=== PATIENT | male | born 1960 | race Caucasian/White ===

== ENCOUNTER 2024-01-25 21:40 | Inpatient (IN) | payer BC, SELFPAY ==
--- NOTE | 2024-01-25 22:11 | RAD REPORT ---
EXAM DESCRIPTION: CT - Ct Stroke Brain Wo Cont - 01/25/2024 9:58 pm CLINICAL HISTORY: STROKE ALERT COMPARISON: No comparisons TECHNIQUE: All CT scans are performed using dose optimization technique as appropriate and may inclu de automated exposure control or mA/KV adjustment according to patient size. FINDINGS: No intracranial hemorrhage, hydrocephalus or extra-axial fluid collection.No areas of brai n edema or evidence of midline shift. The paranasal sinuses and mastoids are clear. The calvarium is intact. IMPRESSION: No acute intracranial abnormality. Called to Dr. Ji by Dr. Head at [id number] on 01/25/24.
[2024-01-25 22:22] LABS: Absolute Basophils 0.1 K/uL (0-0.5); Absolute Eosinophils 0.1 K/uL (0-0.5); Absolute Monocytes 0.8 K/uL (0.1-1.3); Basophils % 0.8 % (0-1.3); MCH 28.8 pg (27.0-35.0)
[2024-01-25 22:25] LABS: Absolute Lymphocytes (CBC) 1.3 K/uL (0.7-4.9); Absolute Neutrophil 10.9 K/uL (1.8-8.0); Hematocrit 46.2 % (39.6-49.0); Hemoglobin 15.2 g/dL (13.6-17.9); MCV 87.2 fL (80-100); MPV 8.4 fL (7.6-11.3); Neutrophils % 82.2 % (41.7-73.7); Platelets 326 thou/uL (152-406); RBC Red Blood Cell Count 5.29 M/uL (4.33-5.43)
[2024-01-25 22:32] LABS: PT Prothrombin Time 13.1 SECONDS (9.4-12.5); PTT, Activated Partial Thromb 32.7 SECONDS (24.3-36.9); Protime INR 1.18
[2024-01-25] MEDS ORDERED: TENECTEPLASE 50 MG/10 ML VIAL IV ONE (22:33)
--- NOTE | 2024-01-25 22:33 | RAD REPORT ---
EXAM DESCRIPTION: CT - Neck Angio - 01/25/2024 10:25 pm CLINICAL HISTORY: cva COMPARISON: <Comparisons> TECHNIQUE: CT angiography of the neck vessels was performed with maximum intensity reformatted image s. CAROTID STENOSIS REFERENCE USING NASCET CRITERIA: Mild - <50% stenosis. Moderate - 50-69% stenosis. Severe - 70-94% stenosis. Near occlusion - 95-99% stenosis. Occluded - 100% stenosis. All CT scans are performed using dose optimization technique as appropriate and may include automated exposure control or mA/KV adjustment according to patient size. FINDINGS: A left aortic arch is identified with normal three vessel configuration of the great vesse ls. No significant flow abnormality is seen of the common carotid bilaterally. No significant stenosis is identified involving the cervical segments of both internal carotid arteri es. Normal flow is seen within both vertebral arteries. Left dominant vertebral artery . IMPRESSION: No significant flow abnormality of the neck vessels is identified.
[2024-01-25 22:38] LABS: Albumin 3.6 g/dL (3.4-5.0); Albumin/Globulin Ratio 0.7 (1.1-1.8); Anion Gap 12.5 mEq/L (5.0-15.0); Bilirubin Direct 0.2 mg/dL (0-0.2); Bilirubin Indirect, Calculated 0.2 mg/dL (0.2-0.8); Bilirubin Total 0.4 mg/dL (0.2-1.0); Globulin 5.5 g/dL (2.3-3.5); Magnesium 2.3 mg/dL (1.6-2.4); Potassium 4.5 mEq/L (3.5-5.1); Protein, Total 9.1 g/dL (6.4-8.2)
--- NOTE | 2024-01-25 22:38 | RAD REPORT ---
EXAM DESCRIPTION: CT - Head angio - 01/25/2024 10:25 pm CLINICAL HISTORY: STROKE COMPARISON: Ct Stroke Brain Wo Cont dated 01/25/2024 TECHNIQUE: CT angiography of the head was performed with maximum intensity reformatted images. 3D ma ximum intensity pixel (MIP) reconstructions were created All CT scans are performed using dose optimization technique as appropriate and may include automated exposure control or mA/KV adjustment according to patient size. FINDINGS: Anterior circulation: No aneurysm or large vessel occlusion. No hemodynamically significant stenosis. No arteriovenous malf ormation identified. Posterior circulation: No aneurysm or large vessel occlusion. No hemodynamically significant stenosis. No arteriovenous malf ormation identified. Left dominant vertebral artery. IMPRESSION: No significant flow abnormality is detected.
[2024-01-25 22:41] LABS: Troponin High Sensitivity 68.3 pg/mL (<58.9)
[2024-01-25] MEDS ORDERED: LABETALOL HCL 100 MG/20 ML ONE (22:48)
--- NOTE | 2024-01-25 23:04 | ER ---
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 Coronavirus screen: At this time, the client does not indicate any symptoms associated with coronavirus-19. Ebola Screen: No symptoms or risks identified at this time. An acute neurological deficit is present. The charge nurse has been notified. The patient has been moved to a treatment area. Initial Sepsis Screen: Does the patient meet any 2 criteria? No. Patient's initial sepsis screen is negative. Does the patient have a suspected source of infection? No. Patient's initial sepsis screen is negative. Risk Assessment: Do you want to hurt yourself or someone else? Patient reports no desire to harm self or others. Onset of symptoms was January 25, 2024 at 19:30. 22:11 Method Of Arrival: EMS: [facility] 12 22:11 Acuity: DYLON 1 jm12 Triage Assessment: 21:48 General: Appears uncomfortable, Behavior is cooperative. Pain: Denies pain. EENT: No ha1 deficits noted. Neuro: Level of Consciousness is awake, Oriented to person. Neuro: Weakness in right hand(s) leg(s) Gait is unsteady, Speech with expressive aphasia noted, Facial droop on right, Pupils are PERRLA, Numbness in right arm Reports blurred vision difficulty swallowing since 1930 weakness in right side of body FAMILY MEMBER AND NEIGHBOR REPORTS LAST TIME SEEM NORMAL WAS AT 1930. Cardiovascular: Reports shortness of breath, Heart tones S1 S2 present Capillary refill < 3 seconds Patient's skin is warm and dry. Rhythm is sinus tachycardia. Respiratory: Airway is patent Respiratory effort is with retractions, Respiratory pattern is tachypnea. GI: No signs and/or symptoms were reported involving the gastrointestinal system. Abdomen is round obese. : No signs and/or symptoms were reported regarding the genitourinary system. Derm: Skin is healthy with good turgor, Skin is diaphoretic, Skin is normal. Musculoskeletal: Range of motion: limited in right arm. Stroke Activation: Physician: ED Attending; Name: Garrison; Notified At: 21:50; Arrived At: Physician: Mid-Level Provider; Name: ; Notified At: 21:50; Arrived At: Physician: [not used]; Name: ; Notified At: ; Arrived At: Physician: [not used]; Name: ; Notified At: ; Arrived At: Physician: [not used]; Name: ; Notified At: ; Arrived At: Historical: - Allergies: 22:13 No Known Allergies; [facility] - Home Meds: 22:13 None [Active]; [facility] - PMHx: 22:13 Unable to Obtain; [facility] - Immunization history:: Adult Immunizations unknown. - Infectious Disease History:: Denies. - Social history:: Smoking status: unknown Patient/guardian denies using. Screenin:13 [facility] ED Fall Risk Assessment (Adult) History of falling in the last 3 months, [facility] including since admission No falls in past 3 months (0 pts) Confusion or Disorientation No (0 pts) Intoxicated or Sedated No (0 pts) Impaired Gait Yes (1 pt) Mobility Assist Device Used No (0 pt) Altered Elimination No (0 pt) Score/Fall Risk Level 3 or more points = High Risk Oriented to surroundings, Maintained a safe environment, Educated pt \\T\\ family on fall prevention, incl call for assistance when getting out of bed, Assessed \\T\\ reinforced patient's understanding of fall precautions. 23:00 Abuse screen: Denies threats or abuse. Denies injuries from another. Nutritional ha1 screening: No deficits noted. Tuberculosis screening: No symptoms or risk factors identified. Assessment: 21:48 Reassessment: going to CT. ha1 21:48 Reassessment: SEE TRIAGE ASSESSMENT. ha1 22:00 Reassessment: back from CT. ha1 22:10 Reassessment: going back to CT. ha1 22:15 Neuro: Level of Consciousness is awake, alert, obeys commands, see stroke scale. 12 22:28 Reassessment: back from CT. ha1 22:30 Reassessment: elevated BP. Notified Dr. Ji. Dr. Ji states "hold TNK until getting ha1 a BP under 160". 22:30 VAN Scoring: Arm Drift: Severe drift Visual Disturbance: Patient reports double vision. ha1 Provider notified of +VAN scoring. Aphasia: Receptive aphasia noted. Provider notified of +VAN scoring. [place] Swallow Protocol Exclusion Criteria:. 22:30 Reassessment: Patient and/or family updated on plan of care and expected duration. Pain ha1 level reassessed. 22:45 Reassessment: SEE PAPER CHARTING FOR MORE VITAL SIGNS. ha1 23:00 [place] Swallow Protocol Brief Cognitive Screen What is your name? Abnormal Where are you ha1 right now? Normal, What year is it? Abnormal Oral Mechanism Examination Facial Symmetry: Abnormal Motion: Abnormal 3 oz Water Swallow Challenge: Pt able to drink all water without stopping, coughing, choking or throat clearing: No Result: FAIL MD Notified: Robbin Ji MD. 23:30 Reassessment: Patient and/or family updated on plan of care and expected duration. Pain ha1 level reassessed. 23:30 Respiratory: Airway is patent Respiratory effort is even, Respiratory pattern is ha1 tachypnea Breath sounds with wheezes bilaterally. 23:50 Reassessment: report given to CASI Zheng. ha1 01/25 00:40 Reassessment: Patient and/or family updated on plan of care and expected duration. Pain ha1 level reassessed. Patient states feeling better. Patient states symptoms have improved. Pain: Denies pain. Neuro: Level of Consciousness is awake, alert, obeys commands, Oriented to person, place, situation, Moves all extremities. Speech with expressive aphasia noted, Facial droop on right. Cardiovascular: Capillary refill < 3 seconds Patient's skin is warm and dry. Respiratory: Airway is patent Respiratory effort is even, Respiratory pattern is tachypnea. Vital Signs: 01/24 22:35 BP 176 / 110; Pulse 122; Resp 24 S; Temp 98.2(T); Pulse Ox 95% on 4 lpm NC; ha1 22:44 Weight 95.25 kg; Height 6 ft. 1 in. ; ha1 22:45 BP 142 / 92; Pulse 96; Resp 23 S; Pulse Ox 94% on 4 lpm NC; ha1 23:45 BP 152 / 95; Pulse 103; Resp 17; Pulse Ox 94% on 4 lpm NC; ha1 22:44 Body Mass Index 27.71 (95.25 kg, 185.42 cm) ha1 NIH Stroke Scale Scores: 22:13 NIHSS Score: 19 jm12 ED Course: 21:47 Patient arrived in ED. jj6 21:48 Patient has correct armband on for positive identification. Placed in gown. Bed in low ha1 position. Call light in reach. Side rails up X2. Adult w/ patient. 21:48 Arm band placed on right wrist. ha1 21:49 Robbin Ji MD is Attending Physician. sp3 22:00 CT Stroke Brain w/o Contrast In Process Unspecified. EDMS 22:05 Inserted saline lock: 20 gauge in left antecubital area, using aseptic technique. Blood ha1 collected. Flushed with 10 mL NS. 22:13 Triage completed. jm12 22:27 CT Neck Angio In Process Unspecified. EDMS 22:27 Head angio In Process Unspecified. EDMS 22:30 Provided Education on: TNK administration and side effects . ha1 22:35 Stroke CXR 1 View In Process Unspecified. EDMS 23:02 Vicente Goff MD is Hospitalizing Provider. sp3 23:14 Aurea Santiago, CASI is Primary Nurse. ha1 08/07 00:40 Patient admitted, IV remains in place. ha1 00:40 No provider procedures requiring assistance completed. ha1 Administered Medications: 08 22:40 Drug: Labetalol IV 10 mg IV at calculated rate once Route: IV; Rate: calculated rate; ha1 Site: left antecubital; 23:00 Follow up: Response: No adverse reaction; Blood pressure is lowered ha1 22:45 Drug: TNK FOR STROKE - Tenecteplase IV (Administer 10 ml NS flush BEFORE and vc1 AFTER tenecteplase) 0.25 mg/kg IV at per protocol once; MAX DOSE 25 mg, IVP over 5 seconds {Co-Signature: kb3 (Margarette Simeon RN).} Route: IV; Rate: per protocol; Site: left antecubital; 23:30 Not Given (unable to swallow ): [id number] mg PO once ha1 Medication: 23:47 VIS not applicable for this client. ha1 Point of Care Testing: Blood Glucose: 22:08 Blood Glucose: 196 mg/dL; ha1 Ranges: Outcome: 23:03 Decision to Hospitalize by Provider. sp3 01/25 00:40 Admitted to ICU accompanied by nurse, accompanied by tech, via stretcher, room 7, on ha1 monitor, with chart, Report called to CASI Zheng 00:40 Condition: stable ha1 00:40 Instructed on the need for admit, Demonstrated understanding of instructions, 00:41 Patient left the ED. ha1 NIH Stroke Scale - NIH Stroke Score Date: 01/25/2024 Time: 22:13 Total Score = 19 10. Dysarthria (speech clarity - read or repeat words) - 2(Severe) 11. Extinction and Inattention (visual/tactile/auditory/spatial/personal) - 2(Profound) 1a. Level of Consciousness (LOC) - 0(Alert) 1b. Level of Consciousness (LOC) (Month \\T\\ Age) - 0(Both) 1c. LOC Commands (Open \\T\\ Closes Eyes/Meat Counter Clerk) - 0(Both) 2. Best Gaze (Lateral Gaze Paresis) - 0(Normal) 3. Visual Field Loss - 0(No visual loss) 4. Facial Palsy - 2(Partial paralysis) 5a. Left Arm: Motor (10-second hold) - 0(No drift) 5b. Right Arm: Motor (10-second hold) - 4(No movement) 6a. Left Leg: Motor (5-second hold - always test supine) - 0(No drift) 6b. Right Leg: Motor (5-second hold - always test supine) - 4(No movement) 7. Limb Ataxia (finger/nose \\T\\ heel/borrego - test with eyes open) - 0(Absent) 8. Sensory Loss (pinprick arms/legs/face) - 2(Severe to total loss) 9. Best Language: Aphasia (description/naming/reading) - 3(Mute, global aphasia) Initials: jm12 Signatures: Dispatcher [employer] EDMS Robbin Ji MD MD sp3 Sharri Hussein6 Ellie Messina RN RN 1 Aurea Santiago, RN RN ha1 Kathy Cifuentes RN RN jm12 Margarette Simeon RN kb3 Corrections: (The following items were deleted from the chart) 01/24 23:22 23:20 TNK FOR STROKE - Tenecteplase IV (Administer 10 ml NS flush BEFORE ha1 and AFTER tenecteplase) 27.215 mg IV at per protocol in left antecubital ha1 23:31 22:44 108.86 kg; Height 6 ft. 1 in.; BMI: 31.6; jm12 ha1
--- NOTE | 2024-01-25 23:04 | EDPHYS ---
Physician Documentation [facility] Name: John Escudero Age: 63 yrs Sex: Male : 1960 Arrival Date: 01/25/2024 Time: 21:40 Bed 7 Private MD: ED Physician Robbin Ji HPI: 01/24 22:47 This 63 yrs old Male presents to ER via EMS with complaints of S/S of Possible Stroke. sp3 22:47 63-year-old male with no known past medical history presents via EMS which was sp3 activated by his father for 2-hour history of right-sided weakness, inability to speak and slow ground-level fall without loss of consciousness. Patient is on no medications and has had no recent surgeries as reported by EMS. Sister has arrived approximately 45 minutes into the patient's visit and states he has had no prior stroke or stroke symptoms, chest pain, other medical prodrome, fever or any other symptoms. She does endorse that he has had a cough for which she has been taking OTC meds. Patient is able to answer yes and no questions however due to his presentation and inability to speak, history, physical and ROS are limited.. Historical: - Allergies: 22:13 No Known Allergies; jm12 - Home Meds: 22:13 None [Active]; jm12 - PMHx: 22:13 Unable to Obtain; jm12 - Immunization history:: Adult Immunizations unknown. - Infectious Disease History:: Denies. - Social history:: Smoking status: unknown Patient/guardian denies using. ROS: 22:49 Unable to obtain ROS due to altered mental status, sp3 Exam: 22:49 Radiologist reports: Negative for bleed sp3 22:49 Neuro: No signs of trauma, no bleeding. Neurological exam demonstrates lower facial droop on the right side. 1/5 motor strength on right upper extremity and right lower extremity. Patient is aphasic but can shake head yes and no. When asked if he knows what he wants to say but he cannot say that he does acknowledge. Limited NIH stroke scale due to these circumstances. I estimate a stroke scale to be anywhere from 12-14., 22:49 Unable to obtain exam due to altered mental status, Vital Signs: 22:35 BP 176 / 110; Pulse 122; Resp 24 S; Temp 98.2(T); Pulse Ox 95% on 4 lpm NC; ha1 22:44 Weight 95.25 kg; Height 6 ft. 1 in. ; ha1 22:45 BP 142 / 92; Pulse 96; Resp 23 S; Pulse Ox 94% on 4 lpm NC; ha1 23:45 BP 152 / 95; Pulse 103; Resp 17; Pulse Ox 94% on 4 lpm NC; ha1 22:44 Body Mass Index 27.71 (95.25 kg, 185.42 cm) ha1 NIH Stroke Scale Scores: 22:13 NIHSS Score: 19 jm12 MDM: 21:49 Patient medically screened. sp3 22:51 TNKase (Tenecteplase) Screening: Indications:. ED course: Given stroke scale negative sp3 CT, tenecteplase is indicated. I have gone through the contraindication list with patient with limited yes and no ability to answer as well as sister who acted as patient's surrogate to the extent that she could. Patient denies any recent surgery, prior intracranial or intraspinal surgery, prior CVA, prior aneurysm, active bleeding, or any other contraindications. I have gone through benefits and risks and both patient and sister agreed to proceeding with tenecteplase. Infusion will be started and patient will be admitted to the ICU. I discussed the entire case with Dr. Clark prior to the infusion who agrees with the plan given the information documented above.. 23:00 Data reviewed: vital signs, nurses notes, lab test result(s), EKG, radiologic studies. sp3 ED course: EKG demonstrates normal sinus rhythm at 97 bpm with normal intervals with QTc 474, normal axis, normal QRS, nonspecific diffuse ST's ST changes without evidence of acute ischemia.. 23:09 ED course: Tenecteplase being infused. We will reevaluate over time. Mild delay in sp3 between CT head and angiograms due to IV difficulty. IV ultimately obtained with ultrasound assistance.. 01/24 21:53 Order name: Basic Metabolic Panel sp3 01/24 21:53 Order name: CBC with Diff; Complete Time: 23:00 sp3 01/24 21:53 Order name: Hepatic Function sp3 01/24 21:53 Order name: High Sensitivity Troponin sp3 01/24 21:53 Order name: Magnesium sp3 01/24 21:53 Order name: Protime (+inr); Complete Time: 23:00 sp3 08/ 21:53 Order name: Ptt, Activated; Complete Time: 23:00 sp3 01/24 21:53 Order name: UDS sp3 01/24 22:07 Order name: Glucose, Ancillary Testing; Complete Time: 23:00 EDMS 08/ 23:16 Order name: Urinalysis w/ reflexes EDMS / 23:16 Order name: CBC with Automated Diff EDMS 01/24 23:16 Order name: CBC with Automated Diff EDMS 01/24 23:16 Order name: Comprehensive Metabolic Panel EDMS 01/24 23:16 Order name: Comprehensive Metabolic Panel EDMS 01/24 23:16 Order name: Lipid Profile EDMS 01/24 23:16 Order name: Lipid Profile EDMS 01/24 23:21 Order name: Thyroid Stimulating Hormone EDMS 01/24 23:24 Order name: ABG sp3 01/24 21:53 Order name: CT Neck Angio; Complete Time: 23:00 sp3 01/24 21:53 Order name: CT Stroke Brain w/o Contrast; Complete Time: 23:00 sp3 01/24 21:53 Order name: Stroke CXR 1 View sp3 01/24 22:01 Order name: Head angio; Complete Time: 23:00 EDMS 01/24 23:16 Order name: CONS Physician Consult EDMS 01/24 21:53 Order name: Accucheck; Complete Time: 22:45 sp3 01/24 21:53 Order name: Cardiac monitoring; Complete Time: 22:45 sp3 01/24 21:53 Order name: EKG - Nurse/Tech; Complete Time: 22:45 sp3 01/24 21:53 Order name: IV Saline Lock; Complete Time: 22:45 sp3 01/24 21:53 Order name: Labs collected and sent; Complete Time: 22:45 sp3 01/24 21:53 Order name: NPO; Complete Time: 22:45 sp3 01/24 21:53 Order name: O2 Per Protocol; Complete Time: 22:45 sp3 01/24 21:53 Order name: O2 Sat Monitoring; Complete Time: 22:45 sp3 01/24 21:53 Order name: Stroke Swallow Screen; Complete Time: 23:15 sp3 08 22:36 Order name: Vital Signs; Complete Time: 23:15 sp3 Administered Medications: 22:40 Drug: Labetalol IV 10 mg IV at calculated rate once Route: IV; Rate: calculated rate; ha1 Site: left antecubital; 23:00 Follow up: Response: No adverse reaction; Blood pressure is lowered ha1 22:45 Drug: TNK FOR STROKE - Tenecteplase IV (Administer 10 ml NS flush BEFORE and vc1 AFTER tenecteplase) 0.25 mg/kg IV at per protocol once; MAX DOSE 25 mg, IVP over 5 seconds {Co-Signature: kb3 (Margarette Simeon RN).} Route: IV; Rate: per protocol; Site: left antecubital; 23:30 Not Given (unable to swallow ): [id number] mg PO once ha1 Point of Care Testing: Blood Glucose: 22:08 Blood Glucose: 196 mg/dL; ha1 Ranges: Critical Glucose Levels:Adult <50 mg/dl or >400 mg/dl <40 mg/dl or >180 mg/dl Disposition Summary: 01/25/24 23:03 Hospitalization Ordered Notes: Hospitalization Status: Inpatient Admission sp3 Provider: Vicente Goff sp3 Location: Intensive Care Unit sp3 Condition: Stable sp3 Problem: new sp3 Symptoms: have worsened sp3 Bed/Room Type: Standard sp3 Room Assignment: 7-(01/25/24 23:27) cg Diagnosis - Acute CVA, right-sided hemiparesis, aphasia sp3 Forms: - Medication Reconciliation Form sp3 - SBAR form sp3 - Leadership Thank You Letter sp3 Critical care time excluding procedures: 22:54 Critical care time: Bedside Care: 20 minutes, Consultation: 15 minutes, Family sp3 Intervention: 5 minutes. Total time: 40 minutes NIH Stroke Scale - NIH Stroke Score Date: 01/25/2024 Time: 22:13 Total Score = 19 10. Dysarthria (speech clarity - read or repeat words) - 2(Severe) 11. Extinction and Inattention (visual/tactile/auditory/spatial/personal) - 2(Profound) 1a. Level of Consciousness (LOC) - 0(Alert) 1b. Level of Consciousness (LOC) (Month \T\ Age) - 0(Both) 1c. LOC Commands (Open \T\ Closes Eyes/Veterinarian Assistant) - 0(Both) 2. Best Gaze (Lateral Gaze Paresis) - 0(Normal) 3. Visual Field Loss - 0(No visual loss) 4. Facial Palsy - 2(Partial paralysis) 5a. Left Arm: Motor (10-second hold) - 0(No drift) 5b. Right Arm: Motor (10-second hold) - 4(No movement) 6a. Left Leg: Motor (5-second hold - always test supine) - 0(No drift) 6b. Right Leg: Motor (5-second hold - always test supine) - 4(No movement) 7. Limb Ataxia (finger/nose \T\ heel/borrego - test with eyes open) - 0(Absent) 8. Sensory Loss (pinprick arms/legs/face) - 2(Severe to total loss) 9. Best Language: Aphasia (description/naming/reading) - 3(Mute, global aphasia) Initials: jm12 Signatures: Dispatcher [employer] EDMS Nicole Paz, RN RN cg Robbin Ji MD MD sp3 Ellie Messina, RN RN vc1 Aurea Santiago, RN RN ha1 Margarette Simeon, RN RN kb3 Kathy Cifuentes RN RN jm12 Margarette Simeon RN kb3 Corrections: (The following items were deleted from the chart) 21:54 21:54 BASIC METABOLIC PANEL+C.LAB.BRZ ordered. EDMS EDMS 21:54 21:54 CBC+H.LAB.BRZ ordered. EDMS EDMS 21:54 21:54 HEPATIC FUNCTION+C.LAB.BRZ ordered. EDMS EDMS 21:54 21:54 Troponin High Sensitivity+C.LAB.BRZ ordered. EDMS EDMS 21:54 21:54 MAGNESIUM+C.LAB.BRZ ordered. EDMS EDMS 21:54 21:54 PROTIME (+INR)+COAG.LAB.BRZ ordered. EDMS EDMS 21:54 21:54 PTT, ACTIVATED+COAG.LAB.BRZ ordered. EDMS EDMS 21:54 21:54 URINE DRUG SCREEN+UC.LAB.BRZ ordered. EDMS EDMS 21:54 21:54 Neck Angio+CT.RAD.BRZ ordered. EDMS EDMS 21:54 21:54 CT-STROKE BRAIN W/O CONTRAST+CT.RAD.BRZ ordered. EDMS EDMS 21:54 21:54 Chest Single View+RAD.RAD.BRZ ordered. EDMS EDMS : 23:16 Thyroid Stimulating Hormone ordered. EDMS EDMS : 23:03 sp3 cg
[2024-01-25] MEDS ORDERED: ONDANSETRON 4 MG/2 ML VIAL IV PRN (23:09)
[2024-01-25] MEDS ORDERED: ACETAMINOPHEN 325 MG TABLET PO PRN (23:09)
--- NOTE | 2024-01-25 23:09 | P.HP ---
Certification for Inpatient Patient admitted to: Inpatient With expected LOS: >2 Midnights Practitioner: I am a practitioner with admitting privileges, knowledge of patient current condition, hospital course, and medical plan of care. Services: Services provided to patient in accordance with Admission requirements found in Title 42 Section 412.3 of the Code of Federal Regulations Patient History Date of Service: 01/26/24 Reason for admission: Weakness of Right side of body History of Present Illness: 63 yrs old Male with no significant past medical history who is a poor historian who was brought to ER with right-sided weakness and inability to speak and slow ground-level fall without loss of consciousness which happened 2 hours ago. And was brought to the ER. Patient is a poor historian and could not speak hence most of the history is obtained from the ER physician as well as from the chart review. Patient was assessed in the ER and a code stroke was called. Neurology was consulted as well. Patient underwent TNK injection and was admitted to the ICU for further monitoring. Denies any fever or chills. No palpitations. No previous history of CAD. Allergies No Known Allergies Allergy (Verified 01/26/24 02:19) Home medications list reviewed: Yes Home Medications: NK [No Home Meds] 01/26/24 - Past Medical/Surgical History Past Medical History: Reviewed- Non-Contributory Past Surgical History: Reviewed- Non-Contributory - Family History Father -: Cancer Notes: Throat CA. defibulator Mother -: Hypertension, Stroke Notes: pacemaker - Social History Smoking Status: Never smoker Review of Systems is unable to be obtained Physical Examination - Vital Signs Temperature: 97.8 F Blood Pressure: 152/96 Pulse: 106 Respirations: 18 Pulse Ox (%): 94 - Physical Exam General: Alert, Cooperative, Moderate distress HEENT: Atraumatic, Normocephalic Neck: Supple, No Thyromegaly Respiratory: Clear to auscultation bilaterally, Normal air movement Cardiovascular: Regular rate/rhythm, Normal S1 S2, No gallops Capillary refill: <2 Seconds Gastrointestinal: Soft and benign, W/out hepatosplenomegaly Musculoskeletal: No clubbing, No swelling Integumentary: No rashes, No breakdown Neurological: Abnormal gait, Abnormal speech, Abnormal strength, Abnormal tone Lymphatics: No axilla or inguinal lymphadenopathy - Studies Laboratory Data (last 24 hrs) 08/12/1201/25/24 01/25/24 22:00 22:00 22:00 WBC 13.30 H Hgb 15.2 Hct 46.2 Plt Count 326 PT 13.1 H INR 1.18 APTT 32.7 Sodium 141 Potassium 4.5 BUN 23 H Creatinine 1.58 H Glucose 198 H Magnesium 2.3 Total Bilirubin 0.4 AST 40 H ALT 50 Alkaline Phosphatase 170 H Assessment and Plan - Plan Acute CVA Right-sided hemiparesis Status post TNK Monitor in ICU for 24 hours post TNK Started statin CT CTA findings noted MRI brain ordered Monitor neuro vital signs , NIH scale PY/OT/ST eval Monitor under telemetry Neurology consulted NSTEMI possibly type II Will trend cardiac enzymes Will monitor telemetry Patient denies any chest pain Will get an echocardiogram Cardiology consult UTI Leukocytosis Started on Rocephin Obtain cultures Change antibiotic as per sensitivity RASHIDA Monitor renal parameters Electrolytes monitor and replace accordingly GI/DVT prophylaxis Advanced directive full code Discharge Plan: Home Plan to discharge in: Greater than 2 days - Advance Directives Does patient have a Living Will: No Does patient have a Durable POA for Healthcare: No - Code Status/Comfort Care Code Status: Full Code Time Spent Managing Pts Care (In Minutes): 48
[2024-01-25] MEDS ORDERED: NA CHLORIDE 0.9% 250 ML IV PRN (23:30)
[2024-01-25 23:46] LABS: Thyroid Stimulating Hormone 2.94 uIU/mL (0.358-3.740)
[2024-01-26 00:29] LABS: Blood O2 Saturation 89.5 % (92-98.5)
[2024-01-26 00:30] LABS: Arterial Blood Carboxyhemoglob 0.8 % (0-1.5); Blood Gas Oxyhemoglobin 87.4 % (94-97); Blood Gas THB 15.6 g/dl (12-18)
[2024-01-26 01:17] VITALS: BMI 27.7
[2024-01-26 01:53] LABS: SARS-CoV-2 Antigen CONTROL BLUE LINE VIS/BG OK; SARS-CoV-2 Antigen Rapid Res Negative (Negative)
[2024-01-26 01:59] LABS: Specific Gravity > 1.030 (1.005-1.030); Sqamous Epithelial None Seen /HPF (None Seen); Urine Bacteria None Seen /HPF (<20); Urine Bilirubin NEGATIVE (Negative); Urine Blood 2+ (Negative); Urine Clarity Clear (Clear); Urine Color Light-Yellow (Yellow); Urine Culture Reflex Order REFLEXED; Urine Glucose NEGATIVE (Negative); Urine Ketones NEGATIVE (Negative); Urine Microscopic Reflex YN ORDER UMIC; Urine Mucus Slight /HPF (None Seen); Urine Nitrite NEGATIVE (Negative); Urine Protein 2+ (Negative); Urine RBC 21-50 /HPF (None Seen); Urine Urobilinogen Normal (Normal); Urine WBC 20-50 /HPF (<5); Urine pH 5.5 (5.0-7.0)
[2024-01-26 02:25] LABS: Barbiturates NEGATIVE (NEGATIVE); Benzodiazepines NEGATIVE (NEGATIVE); Cocaine NEGATIVE (NEGATIVE); METHAMPHETAM NEGATIVE (NEGATIVE); Methadone NEGATIVE (NEGATIVE); Opiates NEGATIVE (NEGATIVE); Phencyclidine NEGATIVE (NEGATIVE); THC Cannibis NEGATIVE (NEGATIVE)
[2024-01-26] MEDS: CEFTRIAXONE 1,000 MG in NA CHLORIDE 0.9% 50 ML IVPB SCH (03:51)
[2024-01-26 05:29] LABS: Absolute Basophils 0.1 K/uL (0-0.5); Absolute Lymphocytes (CBC) 1.2 K/uL (0.7-4.9); Absolute Monocytes 0.9 K/uL (0.1-1.3); Absolute Neutrophil 12.7 K/uL (1.8-8.0); Basophils % 0.7 % (0-1.3); Eosinophils % 0.2 % (0-4.4); Hematocrit 43.8 % (39.6-49.0); Hemoglobin 14.6 g/dL (13.6-17.9); Lymphocytes % 8.2 % (15.3-44.8); MCH 29.1 pg (27.0-35.0); MCHC 33.4 g/dL (32.0-36.0); MCV 87.2 fL (80-100); MPV 8.8 fL (7.6-11.3); Monocytes % 6.1 % (3.3-12.3); Neutrophils % 84.8 % (41.7-73.7); Platelets 262 thou/uL (152-406); RBC Red Blood Cell Count 5.02 M/uL (4.33-5.43)
[2024-01-26 05:46] LABS: Albumin 3.3 g/dL (3.4-5.0); Albumin/Globulin Ratio 0.7 (1.1-1.8); Anion Gap 13.9 mEq/L (5.0-15.0); Bilirubin Total 0.7 mg/dL (0.2-1.0); Globulin 4.8 g/dL (2.3-3.5); Magnesium 2.4 mg/dL (1.6-2.4); Phosphorus 3.2 mg/dL (2.5-4.9); Potassium 3.9 mEq/L (3.5-5.1); Protein, Total 8.1 g/dL (6.4-8.2)
--- NOTE | 2024-01-26 07:52 | RAD REPORT ---
EXAM DESCRIPTION: CT - Ct Stroke Brain Wo Cont - 01/26/2024 7:42 am CLINICAL HISTORY: AMS s/p TNK Headache, drowsiness COMPARISON: Head angio dated 01/25/2024; Ct Stroke Brain Wo Cont dated 01/25/2024 TECHNIQUE: All CT scans are performed using dose optimization technique as appropriate and may inclu de automated exposure control or mA/KV adjustment according to patient size. FINDINGS: There is a large left-sided intercerebral hemorrhage present posterior left frontal lobe m easuring 4.3 x 5.0 cm with mild surrounding edema.Blood is seen extending into the left lateral ventr icle layering posteriorly and causing dilatation of the left lateral ventricle. Blood extends into th e subarachnoid space as well as the basal cisterns. There is diffuse subarachnoid blood present surro unding the brain and brainstem. 8 millimeters of [id number] midline shift is present. Effacement of the basal cisterns is noted. IMPRESSION: Large acute intraparenchymal hemorrhage left posterior frontal lobe, with blood extendin g into the ventricular system on the left and a diffuse pattern of subarachnoid blood. There is mode rate dilatation of the left lateral ventricle, which is significantly a blood-filled. There is 8 millimeters of [id number] midline shift present. There is also diffuse effacement of th e basal cisterns. Findings were discussed with Dr. Mckeon at 7:45 a.m. 01/26/2024 by telephone.
[2024-01-26] MEDS: Nicardipine/NS 25 MG/250 ML KIT IV SCH (08:20)
[2024-01-26] MEDS ORDERED: MANNITOL 25% 12.5 GM/50 ML VIAL IV ONE (08:41)
[2024-01-26] MEDS ORDERED: NA CHLORIDE 0.9% 250 ML IV SCH (09:00)
[2024-01-26] MEDS ORDERED: MANNITOL 20% IV SCH (09:40)
[2024-01-26] MEDS ORDERED: levETIRAcetam 1,000 MG in NA CHLORIDE 0.9% 100 ML IV ONE (10:00)
[2024-01-26 10:40] VITALS: TEMP 96.5
--- NOTE | 2024-01-26 10:49 | RAD REPORT ---
EXAM DESCRIPTION: XR Chest, 1 View CLINICAL HISTORY: Code stroke TECHNIQUE: Frontal view of the chest. COMPARISON: No relevant prior studies available. FINDINGS: Lungs: Coarsened interstitial markings. No focal consolidation. Pleural space: Unremarkable. No pneumothorax. Heart: The cardiac silhouette is enlarged, in part accentuated by portable technique. Mediastinum: Unremarkable. Normal mediastinal contour. Bones/joints: Multilevel spondylosis. No acute fracture. IMPRESSION: No acute disease. Electronically signed by: Penny Quick MD 01/25/2024 11:42 PM CDT Due to temporary technical issues with the PACS/Fluency reporting system, reports are being signed by the in house radiologists without review as a courtesy to insure prompt reporting. The interpreting radiologist is fully responsible for the content of the report.
[2024-01-26 11:33] VITALS: BP 124/64
[2024-01-26 13:10] VITALS: O2SAT 93
--- NOTE | 2024-01-26 13:24 | P.DS ---
Admission Date: 01/25/24 Discharge Date: 01/26/24 Disposition: TRANSFER TO [facility] [place] Discharge Condition: SERIOUS Reason for Admission: Weakness of Right side of body - Problems (1) Acute CVA (cerebrovascular accident) Status: Acute (2) NSTEMI (non-ST elevated myocardial infarction) Status: Acute (3) RASHIDA (acute kidney injury) Status: Acute (4) Intracerebral bleed Status: Acute Brief History of Present Illness: 63 yrs old Male with no significant past medical history who is a poor historian who was brought to ER with right-sided weakness and inability to speak. Patient reported to have crumpled to the floor without loss of consciousness a couple of hours prior to presentation. Patient was assessed in the ER and a code stroke was called. CTA head and neck were unremarkable, neurology was consulted as well and patient given TNK injection. Patient was admitted to the ICU for further management. Hospital Course: Patient was admitted to the ICU. Patient's neurologic status worsened so a repeat head CT was done which showed left frontal lobe bleed with extension into the ventricles and subarachnoid spaces. Patient became somnolent, aphasic but opens his eyes and turns his head to verbal. Neurology Dr. Clark updated and transferred to [facility]. I spoke to neurosurgery, neurology and clinical reimbursement specialist at [facility], patient has been accepted for transfer. Cryoprecipitate for TNKase reversal was ordered, mannitol IV also ordered for increased intracranial pressure. Nicardipine drip was started to treat severe hypertension. Patient has been maintaining his airway. His vitals are stable for transfer. Vital Signs/Physical Exam: Temp Pulse Resp BP Pulse Ox 96.5 F L 109 H 25 H 124/64 97 01/26/24 08:00 01/26/24 09:30 01/26/24 09:30 01/26/24 09:30 01/26/24 09:30 General: Other (Somnolent, aphasic) HEENT: PERRLA, Mucous membr. moist/pink, Sclerae nonicteric Neck: JVD not distended Respiratory: Clear to auscultation bilaterally, Normal air movement Cardiovascular: No edema, Regular rate/rhythm, Normal S1 S2 Gastrointestinal: Normal bowel sounds, Soft and benign, Non-distended Musculoskeletal: No swelling Integumentary: No rashes, No cyanosis Neurological: Other (Aphasic, right-sided weakness.) Laboratory Data at Discharge: WBC 15.00 thou/uL (4.3-10.9) H 01/26/24 04:54 Hgb 14.6 g/dL (13.6-17.9) 01/26/24 04:54 Hct 43.8 % (39.6-49.0) 01/26/24 04:54 Plt Count 262 thou/uL (152-406) 01/26/24 04:54 PT 13.1 SECONDS (9.4-12.5) H 01/25/24 22:00 INR 1.18 01/25/24 22:00 APTT 32.7 SECONDS (24.3-36.9) 01/25/24 22:00 Sodium 142 mEq/L (136-145) 01/26/24 04:54 Potassium 3.9 mEq/L (3.5-5.1) D 01/26/24 04:54 BUN 21 mg/dL (7-18) H 01/26/24 04:54 Creatinine 1.26 mg/dL (0.70-1.30) 01/26/24 04:54 Glucose 211 mg/dL (74-106) H 01/26/24 04:54 Phosphorus 3.2 mg/dL (2.5-4.9) 01/26/24 04:54 Magnesium 2.4 mg/dL (1.6-2.4) 01/26/24 04:54 Total Bilirubin 0.7 mg/dL (0.2-1.0) 01/26/24 04:54 AST 32 U/L (15-37) 01/26/24 04:54 ALT 41 U/L (16-61) 01/26/24 04:54 Alkaline Phosphatase 156 U/L (45-117) H 01/26/24 04:54 Triglycerides Cancelled 01/26/24 Unknown Cholesterol Cancelled 01/26/24 Unknown HDL Cholesterol Cancelled 01/26/24 Unknown Cholesterol/HDL Ratio Cancelled 01/26/24 Unknown Home Medications: NK [No Home Meds] 01/26/24 Followup: NONE,NONE [Primary Care Provider] - Time spent managing pt's care (in minutes): 42
[2024-01-26] MEDS ORDERED: ATORVASTATIN 80 MG TAB PO SCH (21:00)
--- NOTE | 2024-01-27 13:11 | EKG ---
Test Date: 2024-01-25 Test Time: 22:58:06 Principle Industrial Hygienist: RAFAEL MEASUREMENT RESULTS: Intervals: Rate: 97 SD: 152 QRSD: 92 QT: 374 QTc: 474 [place]: P: 72 SD: 152 QRS: 32 T: 52 INTERPRETIVE STATEMENTS: Normal sinus rhythm Nonspecific T wave abnormality Prolonged QT Abnormal ECG No previous ECG available for comparison Electronically Signed On 01-27-24 13:05:58 CDT by Adebayo Anand
== END 2024-01-26 10:33 | disposition short-term general hospital (02) | DRG 61 ==
LOC: ER 21:40 → 3RD-ICU 23:09
PROVIDERS: ADMIT Family Medicine; ATTEND Internal Medicine
PROC: 3E03317 Introduction of Other Thrombolytic into Peripheral Vein, Percutaneous Approach (ICD-10-PCS; principal; 2024-01-26)
PROC: 4A033R1 Measurement of Arterial Saturation, Peripheral, Percutaneous Approach (ICD-10-PCS; 2024-01-26)
PROC: 0T9B70Z Drainage of Bladder with Drainage Device, Via Natural or Artificial Opening (ICD-10-PCS; 2024-01-26)
PROC: 30233K1 Transfusion of Nonautologous Frozen Plasma into Peripheral Vein, Percutaneous Approach (ICD-10-PCS; 2024-01-26)
DX: I63.9 Cerebral infarction, unspecified (principal); I21.A1 Myocardial infarction type 2; G81.91 Hemiplegia, unspecified affecting right dominant side; N39.0 Urinary tract infection, site not specified; N17.9 Acute kidney failure, unspecified; R47.01 Aphasia; R29.719 NIHSS score 19; R29.810 Facial weakness; Z11.52 Encounter for screening for COVID-19
CPT/HCPCS: 36415; 36600; 70450; 70496; 70498; 71045; 80048; 80053; 80061; 80076; 80307; 81001; 82805; 82947; 83036; 83735; 84100; 84443; 84484; 85025; 85610; 85730; 86900; 86901; 87086; 87088; 87811; 92977; 93005; 94760; 96374; 96375; 99285; J0696; J1953; J3101; P9012; Q9967